=== PATIENT | male | born 1975 | race Hispanic/Latino ===

== ENCOUNTER 2019-06-09 10:57 | Emergency (ER) | payer BC ==
[~2019-06-09] VITALS: Ht 185.4 cm; Wt 131.5 kg
--- OUTSIDE RECORDS SUMMARY | 2019-06-09 10:59 | XMS REPORT | Summary of Care ---
Author Author Amalia Carroll M.A. 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 Unavailable Unavailable Unavailable Unavailable Functional Status Name Dates Details Functional status health issues are not documented Status: Name Dates Details Cognitive status health issues are not documented Status: Problems Name Dates Details Chronic sinusitis (473.9, J32.9) Status: Active Deviated nasal septum (470, J34.2) Status: Active Medications Name Dates Details Benazepril HCl - 20 MG Oral Tablet TAKE 1 TABLET DAILY DIRECTED. R.N. * Start : 12-Mar-2018 Active Fluticasone Propionate 50 MCG/ACT Nasal Suspension USE 1 SPRAY IN EACH NOSTRIL TWICE DAILY. * Quantity: 1 Refills: 6 HOSSEIN AVITIA M.D. * Start : 10-Jun-2018 Active 9.9 ML Bottle Azelastine HCl - 0.15 % Nasal Solution [place] in each nostril twice per day * Quantity: 1 Refills: 6 HOSSEIN AVITIA M.D. * Start : 10-Jun-2018 Active 30 ML [place] Btl Allergies and Adverse Reactions Name Dates Details Penicillins (Allergy) Status: Active Past Medical History Name Dates Details History of hepatitis (V12.09, Z86.19) Status: Resolved History of hypertension (V12.59, Z86.79) Status: Resolved Procedures Procedure Dates Details History of Appendectomy Completed History of Knee surgery Completed Immunization Name Dates Details Immunizations not documented Social History Name Dates Details - Status: Name Dates Details Light tobacco smoker Vital Signs Date Test Result Details No Known Vitals to report Results Date Description Value Details Results not documented Plan of Care Name Dates Details Planned Observations Planned Goals not documented Instructions Name Dates Details Instructions not documented Encounters Appointment; HOSSEIN AVITIA M.D. Encounter Diagnosis: Problem not documented On: 12-Mar-2018 10:30 Appointment; HOSSEIN AVITIA M.D. Encounter Diagnosis: Problem not documented On: 16-Apr-2018 13:00 Appointment; HOSSEIN AVITIA M.D. Encounter Diagnosis: Problem not documented On: 28-Apr-2018 14:45 Appointment; HOSSEIN AVITIA M.D. Encounter Diagnosis: Problem not documented On: 10-Jun-2018 14:30
--- OUTSIDE RECORDS SUMMARY | 2019-06-09 10:59 | XMS REPORT | Continuity of Care Document ---
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 Phone [employer] [facility] Unavailable Unavailable Problems No Data Provided for This Section Medications No Data Provided for This Section Allergies, Adverse Reactions, Alerts No Known Medication Allergies Immunizations No Data Provided for This Section Results No Data Provided for This Section Pathology Reports No Data Provided for This Section Diagnostic Reports No Data Provided for This Section Consultation Notes No Data Provided for This Section Discharge Summaries No Data Provided for This Section History and Physicals No Data Provided for This Section Vital Signs No Data Provided for This Section Encounters Location Location Details Encounter Type Encounter Number Reason For Visit Attending Provider ADM Date DC Date Status Source Outpatient [id number] [facility]2015 [facility] [id number] 12/09/2016 [facility] [id number] [facility] 02[facility]09/2017 [facility] [id number] [facility] 03/20/2017 [facility] [id number] [facility] 08[facility]06/2017 Active [facility] [id number] [facility] 11[facility]27/2017 Active [facility] [id number] [facility] 06[facility]29/2018 Active [facility] [id number] [facility] 11/12/2018 [facility] Procedures No Data Provided for This Section Assessment and Plan No Data Provided for This Section Plan of Care No Data Provided for This Section Social History No Data Provided for This Section Family History No Data Provided for This Section Advance Directives No Data Provided for This Section Functional Status No Data Provided for This Section
== END 2019-06-09 13:34 | disposition home or self-care (01) ==
LOC: ER 10:57
DX: R51 Headache (principal); I10 Essential (primary) hypertension; L40.50 Arthropathic psoriasis, unspecified
CPT/HCPCS: 83518; 87070; 99282

== ENCOUNTER 2024-12-02 18:44 | Emergency (ER) | payer BC ==
[~2024-12-02] VITALS: Ht 188 cm; Wt 127.0 kg
[2024-12-02] MEDS ORDERED: TAMIFLU75 MG PO (19:56)
[2024-12-02] MEDS ORDERED: CORICIDIN HBP1 EAC3 PO (19:57)
[2024-12-02] MEDS ORDERED: IBUPROFEN600 MG PO (19:58)
[2024-12-02] MEDS: IBUPROFEN 600 MG TAB PO STA (20:10)
[2024-12-02 20:21] VITALS: PULSE 100; RESP 18; TEMP 98.9
[2024-12-02 21:00] VITALS: BP 181/97; PULSE 97; RESP 18; TEMP 98.4; O2SAT 96
== END 2024-12-02 20:37 | disposition home or self-care (01) ==
LOC: FSED 19:13
DX: R05.9 Cough, unspecified (principal); J10.1 Influenza due to other identified influenza virus with other respiratory manifestations; I10 Essential (primary) hypertension; L40.50 Arthropathic psoriasis, unspecified; Z11.52 Encounter for screening for COVID-19
CPT/HCPCS: 0223U; 83518; 87400; 99283